=== PATIENT | male | born 1980 ===

== ENCOUNTER 2017-05-25 12:00 | Emergency (ER) | payer SELFPAY ==
[2017-05-25 12:05] VITALS: BMI 28.3
[2017-05-25 12:07] VITALS: RESP 18; O2SAT 100
--- NOTE | 2017-05-25 13:18 | C.PDOC ---
History Of Present Illness 37 y/o male presents to ED with complaints of "granules" to testicular area intermittent for "several weeks. Patient denies fever, chills, dysuria, hematuria, penile discharge or any other complaints at this time. Time Seen by Provider: 05/25/17 12:15 Chief Complaint (Nursing): Male Genitourinary History Per: Patient History/Exam Limitations: no limitations Onset/Duration Of Symptoms: Days Current Symptoms Are (Timing): Still Present Quality Of Discomfort: "Pain" Past Medical History Reviewed: Historical Data, Nursing Documentation, Vital Signs Vital Signs: Last Vital Signs Temp 98.5 F 05/25/17 14:16 Pulse 68 05/25/17 14:16 Resp 18 05/25/17 14:16 BP 138/78 05/25/17 14:16 Pulse Ox 100 05/25/17 14:16 - Medical History PMH: No Chronic Diseases Surgical History: No Surg Hx Family History: States: No Known Family Hx - Social History Hx Alcohol Use: Yes Hx Substance Use: No - Immunization History Hx Tetanus Toxoid Vaccination: No Hx Influenza Vaccination: No Hx Pneumococcal Vaccination: No Review Of Systems Except As Marked, All Systems Reviewed And Found Negative. Constitutional: Negative for: Fever, Chills Genitourinary: Positive for: Other (Granules to testicular area). Negative for : Dysuria, Hematuria, Penile Discharge, Scrotal Pain Physical Exam - Physical Exam Appears: Non-toxic, No Acute Distress Skin: Warm, Dry, No Rash Head: Atraumatic, Normacephalic Oral Mucosa: Moist Neck: Normal ROM, Supple Cardiovascular: Rhythm Regular Respiratory: Normal Breath Sounds, No Rales, No Rhonchi, No Wheezing Gastrointestinal/Abdominal: Soft, No Tenderness, No Guarding, No Rebound Male Genital: No Testicular Swelling, No Scrotal Swelling, No Circumcised, Other (scattered small pustules to scrotum and right groin area. No vesicular lesions or penile discharge) Neurological/Psych: Oriented x3, Normal Speech, Normal Cognition ED Course And Treatment O2 Sat by Pulse Oximetry: 100 (RA) Pulse Ox Interpretation: Normal Progress Note: UA ordered. PO antibiotics and Topical cream administered. Symptoms improved and patient was discharged Disposition Counseled Patient/Family Regarding: Studies Performed, Diagnosis, Need For Followup, Rx Given - Disposition Referrals: [facility] [Outside] Disposition: HOME/ ROUTINE Disposition Time: 13:50 Condition: STABLE Additional Instructions: FOLLOW UP WITH YOUR DOCTOR/CLINIC IN 1-2 DAYS USE MEDICATIONS DIRECTED RETURN TO EMERGENCY ROOM IF SYMPTOMS WORSEN SEGUIMIENTO CON BARRERA MDICO / CLNICA EN 1-2 MUSE USE MEDICAMENTOS SEGN LO INDICADO REGRESE AL NEREIDA DE EMERGENCIA SI LOS SNTOMAS EMPEORAN Prescriptions: Cephalexin [Keflex] 500 mg PO BID #14 capsule Clindamycin Phos/Benzoyl Perox [Clindamycin Phosphate-Benzoyl Peroxide 5%-1%] 1 gel TP BID #1 tu Instructions: Folliculitis (DC) Forms: [employer] (Surinamese) Print Language: SAMI - Clinical Impression Clinical Impression: Folliculitis - Scribe Statement The provider has reviewed the documentation as recorded by the Scribmanuel Loving All medical record entries made by the Magiibmanuel were at my direction and personally dictated by me. I have reviewed the chart and agree that the record accurately reflects my personal performance of the history, physical exam, medical decision making, and the department course for this patient. I have also personally directed, reviewed, and agree with the discharge instructions and disposition.
[2017-05-25 13:29] LABS: URINE BILIRUBIN NEGATIVE (NEGATIVE); URINE BLOOD 1+ (NEGATIVE); URINE CLARITY Clear (Clear); URINE COLOR Yellow (YELLOW); URINE GLUCOSE (UA) NORMAL (Normal); URINE LEUKOCYTE ESTERASE NEG Leu/uL (Negative); URINE PROTEIN NEGATIVE (NEGATIVE); URINE UROBILINOGEN NORMAL mg/dL (0.2-1.0)
[2017-05-25 14:18] VITALS: BP 138/78; PULSE 68; TEMP 98.5
== END 2017-05-25 14:17 | disposition home or self-care (01) ==
LOC: C.ER 12:00
DX: L73.9 Follicular disorder, unspecified (principal)